=== PATIENT | female | born 1965 | race Caucasian/White ===

== ENCOUNTER 2016-08-07 22:13 | Emergency (ER) | payer OTHER ==
--- NOTE | 2016-08-07 23:43 | ED CLINICAL REPORT ---
Clinical Report - Physicians/Mid Levels [facility] [address] [place] [address] 08/07/2016 22:16 Patient: JOSTIN HURD Time Seen: 22:27. Arrived- By private vehicle. Historian- patient. CPT: ER phys charges level 3 plus (#[id number]). HISTORY OF PRESENT ILLNESS Chief Complaint: Injury to right hand. The injury happened just prior to arrival. Occurred at home. Fell while standing and landed on a hard surface; tripped. Patient is experiencing moderate pain. No other injury. REVIEW OF SYSTEMS No swelling, tingling, numbness, weakness or suspected foreign body. No skin laceration. All systems otherwise negative, except as recorded above. PAST HISTORY See nurses notes. Anxiety Reaction. Heart Arrhymia. Hypercholesterolemia. Diabetes Mellitus. The patient's dominant hand is the right. Tetanus immunization status is up-to-date. Additional Surgeries: no known surgeries. Medications: MetFORMIN HCl Oral. Lexapro Oral. Atenolol Oral. Atorvastatin Calcium Oral. Allergies: No Known Drug Allergy. SOCIAL HISTORY Never smoker. No alcohol use or drug use. ADDITIONAL NOTES The nursing notes have been reviewed. PHYSICAL EXAM Vital Signs: 08/07/2016 22:32 BP: 121/63. HR: 86. RR: 18. O2 saturation: 95%. Temp: 98.2 F. Pain level now: 3/10. Appearance: Alert. Appears to be in pain. Patient in moderate distress. Head: Head atraumatic. Eyes: Eyes normal inspection. ENT: Pharynx normal. Neck: Normal inspection. Neck supple. C-spine non-tender. CVS: Normal heart rate and rhythm. Heart sounds normal. Pulses normal. Respiratory: No respiratory distress. Breath sounds normal. Chest nontender. Abdomen: No visible injury. Soft and nontender. Back: Normal inspection. No tenderness. ROM normal. Skin: Skin intact. Skin warm. Normal skin color. Extremities: Right hand: moderate tenderness and swelling and small ecchymosis localized to the distal and ulnar aspect of the hand. Neurovascular intact distally. No laceration, abrasion or deformity. Extremities otherwise negative. Neuro, Vascular and Tendons: Vascular status intact. Sensation intact. Motor intact. Tendon function intact. Neuro: Oriented X 3. No motor deficit. No sensory deficit. Reflexes normal. LABS, X-RAYS, AND EKG Rt Hand X-ray: Digit fracture of the right upper extremity. Fracture of the proximal phalanx, ring finger. Fracture of the proximal phalanx, little finger. Views: AP, lateral and oblique. Technique: good. The X-rays were independently viewed by me and interpreted contemporaneously by me. PROGRESS AND PROCEDURES Splint Application: Fiberglass ulnar gutter splint, short arm splint and sling applied to right hand, wrist and forearm. Splint applied by tech with direct supervision by me. Reassessed extremity following splint application. Neurovascular intact. Follow-up recommended within 7 days. Course of Care: percocet 2 po. Patient is stable. Symptoms better. Patient/family counseled. Disposition: Discharged. Condition: stable. CLINICAL IMPRESSION Closed nondisplaced proximal phalanx fracture of the right ring finger and little finger. INSTRUCTIONS Elevate affected areas above chest level today, for one days. Wear fiberglass splint until released. Limit use of your right hand until released. Warnings: GENERAL WARNINGS: Return or contact your physician immediately if your condition worsens or changes unexpectedly, if not improving as expected, or if other problems arise. Your Current Medications: CONTINUE TAKING THE FOLLOWING MEDICATIONS: Atenolol Oral. Atorvastatin Calcium Oral. Lexapro Oral. MetFORMIN HCl Oral. Prescription Medications: Oxycodone/APAP 5 mg/325 mg: take 1 tablet orally every 6 hours as needed for pain. Dispense fifteen (15). No refills. Follow-up: Follow up with an orthopedic surgeon in one week. Call for an appointment. Understanding of the discharge instructions verbalized by patient and family. (Electronically signed by Enio Boles MD 08/10/2016 15:41)
--- NOTE | 2016-08-07 23:43 | ED NURSING NOTES ---
Clinical Report - Nurses [facility] [address] [place] [address] 08/07/2016 22:16 Patient: ANNA MARIE HURD TRIAGE Triage time 22:32. Acuity: LEVEL 4. Chief Complaint: INJURY TO RIGHT HAND and INJURY TO RIGHT WRIST. Alert. ELOISA COMA SCORE: [place]oisa Coma Scale: 15- eyes open spontaneously (4); best verbal response- oriented x 4 (5); best motor response- obeys commands (6). --22:37 Edison Aguero R.N. 22:32 08/07/16. BP: 121/63. HR: 86. RR: 18. O2 saturation: 95% on room air. Temp: 98.2 F (oral). Pain level now: 07/02. --22:37 Edison Aguero R.N. Weight: 72.5 kg stated. Height/Length: 63 inches Per Patient. BMI: 28.3. --22:38 Edison Aguero R.N. Medications Atorvastatin Calcium Oral. --22:33 Edison Aguero R.N. Atenolol Oral. --22:33 Edison Aguero R.N. Lexapro Oral. --22:33 Edison Aguero R.N. MetFORMIN HCl Oral. --22:33 Edison Aguero R.N. Allergies No Known Drug Allergy. --22:33 Edison Aguero R.N. History Arrived by private vehicle. Historian: patient. Accompanied by family. Mechanism of injury: fell. ( pt states that she tripped and fell onto her right hand and wrist). PAST MEDICAL HX: Denies current : denies. SOCIAL HX: Never smoker. No alcohol use or drug use. SELF HARM ASSESSMENT: A self harm assessment was performed. The patient answered "no" to the question "Have you noticed less interest or pleasure in doing things?" and "Do you have thoughts of harming or killing yourself?". NUTRITIONAL RISK ASSESSMENT: The nutritional risk assessment revealed no deficiencies. FUNCTIONAL ASSESSMENT: Functional assessment: no impairments noted. LEARNING NEEDS ASSESSMENT: The learning needs assessment revealed no barriers. SKIN INTEGRITY ASSESSMENT: Skin integrity risk assessment completed. No skin integrity risk identified. --22:37 Edison Aguero R.N. PROBLEMS: Anxiety Reaction. Heart Arrhymia. Hypercholesterolemia. Diabetes Mellitus. --22:35 Edison Aguero R.N. ADDITIONAL SURGERIES: no known surgeries. Interventions ID and allergy band on patient. To treatment room. --22:37 Edison Aguero R.N. PHYSICAL ASSESSMENT EXTREMITIES: Right wrist. Right hand: (swelling and pain). --22:38 Edison Aguero R.N. NURSING PROGRESS NOTES Reassurance given. Two patient identifiers checked. Call light placed in reach. Side rails up x 1. Bed placed in lowest position. Brakes of bed on. Patient ready for evaluation- chart flagged. Patient waiting for evaluation. --22:38 Edison Aguero R.N. Cold pack applied. --22:38 Edison Aguero R.N. 23:40 08/07/2016 Oxycodone-APAP PO 10/650 mg (NOW) was refused by patient because of no reason given. Edison Aguero --23:40 Edison Aguero R.N. Upper extremity splint applied to right arm (2340). --00:14 Sonali Quinteros Sling applied to right arm by upstream biomanufacturing technician; (2340). --00:15 Sonali uQinteros. DISPOSITION / DISCHARGE 00:05 08/08/16. Departure time: 4. Condition at departure: stable. The goals identified in the patient's plan of care were met. No learning barriers present. Discharge instructions provided and reviewed with the patient. Reviewed medication(s) side effects, precautions, dosing and course information. Prescription(s) given to the patient (Anna Marie verbalizes importance of not driving and/or operating heavy machinery while under the influence of narcotics. He verbalizes safe, proper use of prescribed pain meds for optimal pain meds at home.). Reviewed referral to an orthopedic surgeon for followup. Patient verbalized understanding. Written instructions provided in Upper Sorbian. ( Anna Marie verbalizes understanding of all d/c instructions including need to f/u with orthopedic surgeon and splint care. She has no questions and voices no concerns at this time.). The patient was discharged by the physician. She was discharged home and accompanied by program management intern. She left the Emergency Department ambulatory and via private vehicle. Pipe Out Worker driving. ELOISA COMA SCORE: [place] Coma Scale: 15- eyes open spontaneously (4); best verbal response- oriented x 4 (5); best motor response- obeys commands (6). --01:45 Jordan Melendez R.N. 00:00 08/08/16. BP: 109/63 (regular adult cuff) taken on the right arm, via an automated monitor, while sitting. HR: 86 (normal rate). RR: 16 (regular, unlabored and normal). O2 saturation: 97% on room air. Temp: 98.4 F (oral). Pain level now: 10/02. --01:45 Jordan Melendez R.N. Locked/Released at 08/08/2016 2:06 by Jordan Melendez R.N.
--- NOTE | 2016-08-07 23:43 | ED ORDER SUMMARY ---
..... Patient: JOSTIN HURD OrderSheet [facility] VisitID: [id number] [place] [address] 51y, F Registration Date/Time: 08/07/2016 ORDER SHEET Weight: 72.5 kg (stated) Allergies: No Known Drug Allergy GENERAL ORDERS: Hand 3 or 4V Right Urgent (22:39 08/07/2016 DDavis R.N. per protocol) (Ack 22:40 Alessia ER Agile Tester) (23:06 RFay) Splint (UE) (Right) (Ulnar Gutter) (23:27 08/07/2016 Julito EASTON) (Ack 23:37 DDavis R.N.) (0:01 JDeElena R.N.) Sling - arm (23:28 08/07/2016 Julito EASTON) (Ack 23:37 DDavis R.N.) (0:01 JDeElena R.N.) MEDICATION ORDERS: Oxycodone-APAP PO 10/650 mg (NOW) (23:28 08/07/2016 Julito EASTON) (Ack 23:37 DDavis R.N.) IV FLUIDS: ORDER SHEET NOTES: [Electronically signed by Jordan Melendez R.N. (02:06 08/08/2016)] [Electronically signed by Enio Boles MD (15:41 08/10/2016)] [Electronically locked/signed by Jordan Melendez R.N. (02:06 08/08/2016)]
--- NOTE | 2016-08-07 23:43 | ED ORDER SUMMARY ---
..... Patient: JOSTIN HURD OrderSheet [facility] VisitID: [id number] [place] [address] 51y, F Registration Date/Time: 08/07/2016 ORDER SHEET Weight: 72.5 kg (stated) Allergies: No Known Drug Allergy GENERAL ORDERS: Hand 3 or 4V Right Urgent (22:39 08/07/2016 DDavis R.N. per protocol) (Ack 22:40 Alessia ER Master Welder) (23:06 RFay) Splint (UE) (Right) (Ulnar Gutter) (23:27 08/07/2016 Julito EASTON) (Ack 23:37 DDavis R.N.) (0:01 JDeElena R.N.) Sling - arm (23:28 08/07/2016 Julito EASTON) (Ack 23:37 DDavis R.N.) (0:01 JDeElena R.N.) MEDICATION ORDERS: Oxycodone-APAP PO 10/650 mg (NOW) (23:28 08/07/2016 Julito EASTON) (Ack 23:37 DDavis R.N.) IV FLUIDS: ORDER SHEET NOTES: [Electronically signed by Jordan Melendez R.N. (02:06 08/08/2016)] [Electronically signed by Enio Boles MD (15:41 08/10/2016)] [Electronically locked/signed by Jordan Melendez R.N. (02:06 08/08/2016)]
--- NOTE | 2016-08-07 23:43 | ED NURSING NOTES ---
Clinical Report - Nurses [facility] [address] [place] [address] 08/07/2016 22:16 Patient: ANNA MARIE HURD TRIAGE Triage time 22:32. Acuity: LEVEL 4. Chief Complaint: INJURY TO RIGHT HAND and INJURY TO RIGHT WRIST. Alert. ELOISA COMA SCORE: Eloisa Coma Scale: 15- eyes open spontaneously (4); best verbal response- oriented x 4 (5); best motor response- obeys commands (6). --22:37 Edison Aguero R.N. 22:32 08/07/16. BP: 121/63. HR: 86. RR: 18. O2 saturation: 95% on room air. Temp: 98.2 F (oral). Pain level now: 07/02. --22:37 Edison Aguero R.N. Weight: 72.5 kg stated. Height/Length: 63 inches Per Patient. BMI: 28.3. --22:38 Edison Aguero R.N. Medications Atorvastatin Calcium Oral. --22:33 Edison Aguero R.N. Atenolol Oral. --22:33 Edison Aguero R.N. Lexapro Oral. --22:33 Edison Aguero R.N. MetFORMIN HCl Oral. --22:33 Edison Aguero R.N. Allergies No Known Drug Allergy. --22:33 Edison Aguero R.N. History Arrived by private vehicle. Historian: patient. Accompanied by family. Mechanism of injury: fell. ( pt states that she tripped and fell onto her right hand and wrist). PAST MEDICAL HX: Denies current : denies. SOCIAL HX: Never smoker. No alcohol use or drug use. SELF HARM ASSESSMENT: A self harm assessment was performed. The patient answered "no" to the question "Have you noticed less interest or pleasure in doing things?" and "Do you have thoughts of harming or killing yourself?". NUTRITIONAL RISK ASSESSMENT: The nutritional risk assessment revealed no deficiencies. FUNCTIONAL ASSESSMENT: Functional assessment: no impairments noted. LEARNING NEEDS ASSESSMENT: The learning needs assessment revealed no barriers. SKIN INTEGRITY ASSESSMENT: Skin integrity risk assessment completed. No skin integrity risk identified. --22:37 Edison Aguero R.N. PROBLEMS: Anxiety Reaction. Heart Arrhymia. Hypercholesterolemia. Diabetes Mellitus. --22:35 Edison Aguero R.N. ADDITIONAL SURGERIES: no known surgeries. Interventions ID and allergy band on patient. To treatment room. --22:37 Edison Aguero R.N. PHYSICAL ASSESSMENT EXTREMITIES: Right wrist. Right hand: (swelling and pain). --22:38 Edison Aguero R.N. NURSING PROGRESS NOTES Reassurance given. Two patient identifiers checked. Call light placed in reach. Side rails up x 1. Bed placed in lowest position. Brakes of bed on. Patient ready for evaluation- chart flagged. Patient waiting for evaluation. --22:38 Edison Aguero R.N. Cold pack applied. --22:38 Edison Aguero R.N. 23:40 08/07/2016 Oxycodone-APAP PO 10/650 mg (NOW) was refused by patient because of no reason given. Edison Aguero --23:40 Edison Aguero R.N. Upper extremity splint applied to right arm (2340). --00:14 Sonali Quinteros Sling applied to right arm by commercial kitchen service technician; (2340). --00:15 Sonali Quinteros. DISPOSITION / DISCHARGE 00:05 08/08/16. Departure time: 4. Condition at departure: stable. The goals identified in the patient's plan of care were met. No learning barriers present. Discharge instructions provided and reviewed with the patient. Reviewed medication(s) side effects, precautions, dosing and course information. Prescription(s) given to the patient (Anna Marie verbalizes importance of not driving and/or operating heavy machinery while under the influence of narcotics. He verbalizes safe, proper use of prescribed pain meds for optimal pain meds at home.). Reviewed referral to an orthopedic surgeon for followup. Patient verbalized understanding. Written instructions provided in Macedonian. ( Anna Marie verbalizes understanding of all d/c instructions including need to f/u with orthopedic surgeon and splint care. She has no questions and voices no concerns at this time.). The patient was discharged by the physician. She was discharged home and accompanied by rock contractor. She left the Emergency Department ambulatory and via private vehicle. Roster Clerk driving. ELOISA COMA SCORE: [place] Coma Scale: 15- eyes open spontaneously (4); best verbal response- oriented x 4 (5); best motor response- obeys commands (6). --01:45 Jordan Melendez R.N. 00:00 08/08/16. BP: 109/63 (regular adult cuff) taken on the right arm, via an automated monitor, while sitting. HR: 86 (normal rate). RR: 16 (regular, unlabored and normal). O2 saturation: 97% on room air. Temp: 98.4 F (oral). Pain level now: 10/02. --01:45 Jordan Melendez R.N. Locked/Released at 08/08/2016 2:06 by Jordan Melendez R.N.
--- NOTE | 2016-08-08 00:24 | DIAGNOSTIC IMAGING REPORT ---
PROCEDURE: XR HAND 3 OR 4 VIEWS - RIGHT INDICATION: TRAUMA/INJURY TECHNIQUE: Four views. COMPARISON: None. FINDINGS: Minimally displaced fractures at the bases of the third, fourth and fifth metacarpals which probably spares joints or surfaces. No other abnormalities. IMPRESSION: 1. Minimally displaced fractures at the bases of the right third, fourth and fifth metacarpals.
--- NOTE | 2016-08-10 15:41 | ED MED RECONCILIATION SUMMARY ---
Patient: JOSTIN HURD Medication Reconciliation Report [facility] VisitID: [id number] [address] [place] [address] 51y, F Registration Date/Time: 08/07/2016 Weight: 72.5 kg Height/Length: 63 in. BMI: 28.3 ALLERGIES: No Known Drug Allergy The patient's Home Medications are listed below: CONTINUE TAKING THE FOLLOWING MEDICATIONS: Atenolol Oral Atorvastatin Calcium Oral Lexapro Oral MetFORMIN HCl Oral The source(s) of the original Home Medication information: Not obtained. The following Medications were given to the patient in the Emergency Department: None. The following Medications were prescribed to the patient: Oxycodone/APAP 5 mg/325 mg: take 1 tablet orally every 6 hours as needed for pain. Dispense fifteen (15). No refills. -- Enio Boles MD
--- NOTE | 2016-08-10 15:41 | ED DISCHARGE INSTRUCTIONS ---
Patient: JOSTIN HURD General Instructions [facility] VisitID: [id number] [place] [address] 51y, F Registration Date/Time: 08/07/2016 Closed nondisplaced proximal phalanx fracture of the right ring finger and little finger. INSTRUCTIONS Elevate affected areas above chest level today, for one days. Wear fiberglass splint until released. Limit use of your right hand until released. Warnings: GENERAL WARNINGS: Return or contact your physician immediately if your condition worsens or changes unexpectedly, if not improving as expected, or if other problems arise. Your Current Medications: CONTINUE TAKING THE FOLLOWING MEDICATIONS: Atenolol Oral. Atorvastatin Calcium Oral. Lexapro Oral. MetFORMIN HCl Oral. Prescription Medications: Oxycodone/APAP 5 mg/325 mg: take 1 tablet orally every 6 hours as needed for pain. Dispense fifteen (15). No refills. Follow-up: Follow up with an orthopedic surgeon in one week. Call for an appointment. Understanding of the discharge instructions verbalized by patient and family. ADDITIONAL INFORMATION Fracture: Finger [Closed] You have a fracture of your finger (broken finger). This causes local pain, swelling and bruising. This injury takes about four weeks to heal. Finger injuries are often treated with a splint, cast or by taping the injured finger to the next one ("yesenia taping"). This protects the injured finger and holds the bone in position while it heals. More serious fractures may require surgery. If the FINGERNAIL has been severely injured, it will probably fall off in 1-2 weeks. A new fingernail will usually start to grow back within a month. Home Care: 1) Keep your hand elevated to reduce pain and swelling. When sitting or lying down elevate your arm above the level of your heart. You can do this by placing your arm on a pillow that rests on your chest or on a pillow at your side. This is most important during the first 48 hours after injury. 2) Apply an ice pack (ice cubes in a plastic bag, wrapped in a towel) over the injured area for 20 minutes every 1-2 hours the first day for pain relief. Continue this 3-4 times a day until the pain and swelling goes away. 3) Keep the cast/splint completely dry at all times. Bathe with your cast/splint out of the water, protected with a large plastic bag, rubber-banded at the top end. If a fiberglass cast/splint gets wet, you can dry it with a hair-dryer. 4) If yesenia tape was applied and it becomes wet or dirty, change it. You may replace it with paper, plastic or cloth tape. Cloth tape and paper tapes must be kept dry. Keep the yesenia tape in place for at least four weeks. 5) You may use acetaminophen (Tylenol) or ibuprofen (Motrin, Advil) to control pain, unless another pain medicine was prescribed. [ NOTE : If you have chronic liver or kidney disease or ever had a stomach ulcer or GI bleeding, talk with your doctor before using these medicines.] Follow Up with your doctor within one week, or as advised by our staff, to be sure the bone is healing properly, . [NOTE: A radiologist will review any X-rays that were taken. We will notify you of any new findings that may affect your care.] Get Prompt Medical Attention if any of the following occur: -- The plaster cast or splint becomes wet or soft -- The fiberglass cast or splint remains wet for more than 24 hours -- Pain or swelling increases -- Redness, warmth, swelling, drainage from the wound or foul odor from a cast or splint -- Finger becomes more cold, blue, numb or tingly Splint Care, Fiberglass The following will help you care for your splint: It will take up totwo hours for your fiber glass splint to fully harden; therefore, do notapply any pressure on it during that time or else it may break. To prevent swelling under the splint, for thefirst 48 hours: If the splint is on yourarm, keep it in a sling or raised to shoulder level when sitting or standing; rest it on your chest or on a pillow at your side when lying down. If the splint is on yourfoot, keep it propped up above the level of your waist when sitting or lying. Avoid crutch walking as much as possible during this time. Keep the splint/cast dry at all times. Bathe with your splint/cast well out of the water, protected with a large plastic bag, rubber-banded at the top end. If a fiberglass cast or splint gets wet, you can dry it with a hair-dryer. Follow-up care Follow up with your doctor or this facility as advised. When to seek medical care Get prompt medical attention if any of the following occur: Bad odor from the splint or wound-fluid stains the splint The splint cracks or remains wet over 24 hours Increasing tightness or pressure under the splint Fingers or toes become swollen, cold, blue, numb or tingly Increased pain under the splint You have been given the following additional information: Fracture, Finger (Closed) Splint Care, Fiberglass Limit use of your right hand until released. (Electronically signed by Enio Boles MD 08/10/2016 15:41)
--- NOTE | 2016-08-10 15:41 | ED MED RECONCILIATION SUMMARY ---
Patient: JOSTIN HURD Medication Reconciliation Report [facility] VisitID: [id number] [address] [place] [address] 51y, F Registration Date/Time: 08/07/2016 Weight: 72.5 kg Height/Length: 63 in. BMI: 28.3 ALLERGIES: No Known Drug Allergy The patient's Home Medications are listed below: CONTINUE TAKING THE FOLLOWING MEDICATIONS: Atenolol Oral Atorvastatin Calcium Oral Lexapro Oral MetFORMIN HCl Oral The source(s) of the original Home Medication information: Not obtained. The following Medications were given to the patient in the Emergency Department: None. The following Medications were prescribed to the patient: Oxycodone/APAP 5 mg/325 mg: take 1 tablet orally every 6 hours as needed for pain. Dispense fifteen (15). No refills. -- Enio Boles MD
--- NOTE | 2016-08-10 15:41 | ED MAR SUMMARY ---
..... Medication Administration Record [facility] [address] [place], [place] [id number] Patient: JOSTIN HURD Visit ID: [id number] 51y, F Weight: 72.5 kg Height/Length: 63 in BMI: 28.3 ALLERGIES: No Known Drug Allergy
--- NOTE | 2016-08-10 15:41 | ED MAR SUMMARY ---
..... Medication Administration Record [facility] [address] [place], [place] [id number] Patient: JOSTIN HURD Visit ID: [id number] 51y, F Weight: 72.5 kg Height/Length: 63 in BMI: 28.3 ALLERGIES: No Known Drug Allergy
== END 2016-08-08 00:05 | disposition home or self-care (01) ==
LOC: ED SRH 22:13
DX: S62.614A Displaced fracture of proximal phalanx of right ring finger, initial encounter for closed fracture (principal); S62.616A Displaced fracture of proximal phalanx of right little finger, initial encounter for closed fracture; W18.30XA Fall on same level, unspecified, initial encounter; Y92.009 Unspecified place in unspecified non-institutional (private) residence as the place of occurrence of the external cause; Z79.84 Long term (current) use of oral hypoglycemic drugs; E11.9 Type 2 diabetes mellitus without complications; I49.9 Cardiac arrhythmia, unspecified; Z79.899 Other long term (current) drug therapy